=== PATIENT | female | born 1940 | race Caucasian/White ===

== ENCOUNTER 2018-06-06 13:18 | Emergency (ER) | payer MEDICARE, OTHER ==
[~2018-06-06] VITALS: Ht 157.5 cm; Wt 79.4 kg
[2018-06-06] MEDS ORDERED: ONDANSETRON HCL INJ 2 MG/ML VIAL IV PRN (13:45)
[2018-06-06] MEDS ORDERED: ASPIRIN 81 MG CHEW TAB PO ONE (13:45)
[2018-06-06] MEDS ORDERED: DAPSONE100 MG PO (13:50)
[2018-06-06 14:26] LABS: BASOPHILS % 0.2 % (0.0-1.0); EOSINOPHILS % 0.3 % (0.0-6.0); HEMATOCRIT 41.6 % (34.2-44.1); HEMOGLOBIN 13.7 g/dL (12.0-16.0); LYMPHOCYTES % 18.7 % (18.0-39.1); MEAN CORPUSCULAR HEMOGLOBIN 32.2 pg (28-32); MEAN CORPUSCULAR HGB CONC 32.9 g/dL (31-35); MEAN CORPUSCULAR VOLUME 97.9 fL (81-99); MONOCYTES # (AUTO) 0.7 (0.2-0.8); NEUTROPHILS # (AUTO) 7.9 (2.1-6.9); PLATELET COUNT 250 x10e3/uL (140-360); RED BLOOD COUNT 4.25 x10e6/uL (3.6-5.1)
[2018-06-06] MEDS ORDERED: FAMOTIDINE 20 MG/2 ML VIAL IV ONE (14:30)
[2018-06-06] MEDS ORDERED: DEXAMETHASONE SOD PHOS 10 MG/1 ML VIAL IV ONE (14:30)
[2018-06-06] MEDS ORDERED: DIPHENHYDRAMINE HCL INJ 50 MG/ML VIAL IV ONE (14:30)
[2018-06-06 14:32] LABS: BILIRUBIN,URINE 2+ (NEGATIVE); CLARITY,URINE CLOUDY (CLEAR); COLOR,URINE ORANGE (YELLOW); KETONES,URINE TRACE (NEGATIVE); LEUKOCYTE ESTERASE ,URINE 1+ (NEGATIVE); NITRITE,URINE POSITIVE (NEGATIVE); PROTEIN,URINE DIPSTICK TRACE (NEGATIVE); URINE UROBILINOGEN 1 mg/dL (0.2 - 1)
--- NOTE | 2018-06-06 14:39 | Diagnostic Imaging Report ---
EXAMINATION: CHEST SINGLE (PORTABLE) COMPARISON: None INDICATION: Allergic reaction; chest pain, enlarged mediastinum DISCUSSION: Frontal view of the chest obtained at 1412 hours. HEART AND MEDIASTINUM: The cardiomediastinal silhouette is unremarkable. No cardiomegaly. LINES: None. LUNGS: The lungs are well inflated and clear. No pneumonia or pulmonary edema. Pulmonary vasculature and interstitium are normal. PLEURA: No pleural effusion or pneumothorax. BONES AND SOFT TISSUES: No focal osseous lesion. The soft tissues are normal. IMPRESSION: No acute cardiopulmonary disease. Signed by: Dr. Jabari Castro MD on 06/06/2018 2:36 PM
[2018-06-06 14:40] LABS: BACTERIA,URINE MANY /HPF; CALCIUM OXALATE CRYSTALS,UR FEW (FEW); EPITHELIAL CELLS,URINE MODERATE /LPF; RBC,URINE >50 /HPF (0-5); WBC,URINE (MAN) 21-50 /HPF (0-5)
[2018-06-06 14:44] LABS: ALANINE AMINOTRANSFERASE 18 IU/L (0-55); ALBUMIN 3.4 g/dL (3.5-5.0); ALBUMIN/GLOBULIN RATIO 1.1 (0.8-2.0); ALKALINE PHOSPHATASE 109 IU/L (40-150); ANION GAP 12.7 mmol/L (8-16); BLOOD UREA NITROGEN 16 mg/dL (7-26); BUN/CREATININE RATIO 22 (6-25); CALCIUM 9.3 mg/dL (8.4-10.2); CARBON DIOXIDE 25 mmol/L (22-29); CHLORIDE 107 mmol/L (98-107); CREATINE KINASE 32 IU/L (29-168); CREATININE, SERUM 0.72 mg/dL (0.57-1.11); EST GLOMERULAR FILTRATION RATE > 60 ML/MIN (60-); GLUCOSE 116 mg/dL (74-118); POTASSIUM 3.7 mmol/L (3.5-5.1); SODIUM 141 mmol/L (136-145)
[2018-06-06 15:02] LABS: THYROID STIMULATING HORMONE 3.215 uIU/mL (0.350-4.940)
[2018-06-06 15:19] VITALS: BP 144/63
== END 2018-06-06 15:26 | disposition home or self-care (01) ==
LOC: ER 13:18
DX: R00.2 Palpitations (principal); R07.89 Other chest pain; N39.0 Urinary tract infection, site not specified; R21 Rash and other nonspecific skin eruption
CPT/HCPCS: 36415; 71045; 80053; 81001; 82550; 82553; 83880; 84436; 84443; 84479; 84484; 85025; 87086; 93005; 99284; J1100; J1200; J2405

== ENCOUNTER 2022-02-19 10:51 | Emergency (ER) | payer MEDICARE, OTHER ==
[~2022-02-19] VITALS: Ht 157.5 cm; Wt 79.4 kg
[~2022-02-19 10:51] MED LIST: DAPSONE100 MG PO
[2022-02-19] MEDS ORDERED: BACTRIM DS TAB1 EACH PO (11:39)
== END 2022-02-19 11:44 | disposition home or self-care (01) ==
LOC: ER 11:10
DX: L02.413 Cutaneous abscess of right upper limb (principal)
CPT/HCPCS: 99283

== ENCOUNTER 2022-10-16 11:15 | Emergency (ER) | payer MEDICARE, OTHER ==
[~2022-10-16] VITALS: Ht 157.5 cm; Wt 79.4 kg
[~2022-10-16 11:15] MED LIST changes: +BACTRIM DS TAB1 EACH PO
[2022-10-16] MEDS ORDERED: BENZONATATE 100 MG CAP PO ONE (12:15)
[2022-10-16] MEDS ORDERED: ALBUTEROL SULFATE HFA 8GM INHALATION AEROSOL INH ONE ×2 (12:25→12:45)
[2022-10-16] MEDS ORDERED: BENZONATATE 100 MG CAP ONE (12:25)
[2022-10-16] MEDS ORDERED: BENZONATATE100 MG PO (14:25)
== END 2022-10-16 14:32 | disposition home or self-care (01) ==
LOC: ER 11:35
DX: R05.9 Cough, unspecified (principal); R09.89 Other specified symptoms and signs involving the circulatory and respiratory systems
CPT/HCPCS: 71046; 99283